=== PATIENT | male | born 1945 | race Caucasian/White ===

== ENCOUNTER 2017-12-11 01:52 | Observation (INO) | payer MEDICARE, OTHER ==
[2017-12-11 02:25] LABS: CHLORIDE,CL 102 mEq/L (98-106); SODIUM,NA 138 mEq/L (136-145)
[2017-12-11] MEDS ORDERED: Sodium Chloride 0.9% 1,000 ML ONE (02:32)
--- NOTE | 2017-12-11 02:35 | EDM.PDOC ---
ED HPI GENERAL MEDICAL PROBLEM - General Chief Complaint: Head Injury Stated Complaint: Fell out side Time Seen by Provider: 12/11/17 02:00 Source of Information: Reports: Patient, EMS, Family History Limitations: Reports: Intoxication - History of Present Illness INITIAL COMMENTS - FREE TEXT/NARRATIVE: BIBA s/p fall with +LOC and hematoma to head which occurred immediately [facility]. EMS reports they arrived to find the patient sitting outside of a bar holding his head. The barrel leveler reports that the patient fell, struck his head, and was unconscious for approximately 15 minutes. He was incontinent of bowel and bladder during this period. The barrel leveler also reports that prior to the fall the patient had 6 alcoholic drinks. The patient is unable to recall the events prior, during, and after the fall. He is anticoagulated d/t hx of atrial fibrillation. He denies any complaints. Onset: Today, Sudden Location: Reports: Head, Upper Extremity, Right Quality: Reports: Other (patient unable to articulate quality of pain) Worsens with: Reports: Movement Context: Reports: Trauma - Related Data Allergies Allergy/AdvReac Type Severity Reaction Status Date / Time sulfamethoxazole Allergy Rash Verified 10/02/14 07:57 [From Bactrim] trimethoprim [From Bactrim] Allergy Rash Verified 10/02/14 07:57 Home Meds: Home Meds Aspirin [Halfprin] 81 mg PO DAILY 12/27/13 [History] Carvedilol 25 mg PO BID 12/27/13 [History] Cholecalciferol (Vitamin D3) [Vitamin D3] 2,000 unit PO DAILY 12/27/13 [History] Digoxin 250 mcg PO DAILY 12/27/13 [History] Lisinopril 20 mg PO DAILY 12/27/13 [History] Silver Sulfadiazine [Silvadene 1% Cream 20 GM] 1 applic TOP BID PRN 12/27/13 [ History] Ubidecarenone [Co Q-10] 30 mg PO DAILY 12/27/13 [History] Warfarin Sodium [Coumadin] 6 mg PO DAILY 12/27/13 [History] Clindamycin HCl [Cleocin] 150 mg PO Q8H #21 cap 01/04/14 [Rx] ED ROS GENERAL - Review of Systems Review Of Systems: See Below Constitutional: Denies: Fever, Chills HEENT: Denies: Dental Pain, Nosebleed, Nose Pain Respiratory: Denies: Shortness of Breath, Wheezing, Cough Cardiovascular: Reports: Other (unable to recall if fall was syncopal in nature) . Denies: Chest Pain GI/Abdominal: Denies: Abdominal Pain, Bloody Stool, Diarrhea, Nausea, Vomiting : Denies: Dysuria, Flank Pain, Frequency, Pain Musculoskeletal: Reports: Shoulder Pain, Arm Pain, Joint Pain. Denies: Neck Pain, Back Pain, Hand Pain, Leg Pain, Foot Pain, Muscle Stiffness Skin: Reports: Bruising Neurological: Denies: Dizziness, Headache, Numbness, Paresthesia, Tingling, Tremors, Weakness ED EXAM, HEAD INJURY - Physical Exam Exam: See Below Exam Limited By: Intoxication General Appearance: Alert, WD/WN, Mild Distress Head: Scalp Swelling, Scalp Hematoma. No: Oconnell's Sign, Raccoon Eyes Nexus Criteria: Evidence of Intoxication, Altered Level of Consciousness. No: Posterior, Midline Cervical Tenderness, Focal Neurological Deficit, Painful Distraction Injuries Eyes: Bilateral Eye: Nystagmus, PERRL (sluggish bilat) Ears: Normal External Exam, Hearing Grossly Normal Nose: Normal Inspection Throat/Mouth: Normal Inspection, Normal Lips, Normal Teeth, Normal Oropharynx, Normal Voice, No Airway Compromise Neck: Non-Tender, Full Range of Motion, Normal Alignment, Normal Inspection Respiratory: No Respiratory Distress, Lungs Clear, Normal Breath Sounds, No Accessory Muscle Use, Chest Non-Tender Cardiovascular: Normal Peripheral Pulses, Regular Rate, Rhythm GI/Abdominal Exam: Normal Bowel Sounds, Soft, Non-Tender, Pelvis Stable (Male) Exam: Normal Inspection Back Exam: Normal Inspection, Full Range of Motion. No: CVA Tenderness (L), CVA Tenderness (R), Paraspinal Tenderness, Vertebral Tenderness Extremities: Normal Capillary Refill, Other (swelling about the RIGHT elbow and RIGHT shoulder. no other acute MSK findings.) Neurologic: Other (unable to recall the day, date, month, year. able to state full name, location. unable to recall events leading to, during, after fall. repeatedly asks why he is here.) Skin: Normal Color, Other (hematoma with abrasion to RIGHT scalp.) - [place] Coma Score Best Eye Response ([place]): (4) Open Spontaneously Best Verbal Response ([place]): (4) Confused Conversation Best Motor Response ([place]): (6) Obeys Commands Ella Total: 14 ED LACERATION/WOUND & XENIA PROC - Splinting Right Upper Extremity Pre-procedure NV status: Normal Post-procedure NV status: Normal Splint Material: Fiberglass Splint Design: Posterior, Sling Applied & Form Fitted By: Provider Provider Post-Splint Application NV Check: NV Status Normal Complications: No EKG INTERPRETATION EKG Date: 12/11/17 Time: 02:12 Rhythm: A-Fib Rate (Beats/Min): 62 QRS: Wide Course - Vital Signs Last Recorded V/S: Last Vital Signs Temp 34.8 C L 12/11/17 02:00 Pulse 76 12/11/17 02:00 Resp 20 12/11/17 02:00 BP 138/97 H 12/11/17 02:00 Pulse Ox 98 12/11/17 02:00 - Orders/Labs/Meds Orders: Active Orders 24 hr Category Date Time Status Cervical Spine wo Cont [CT] Stat Exams 12/11/17 02:23 Taken Chest 2V [CR] Stat Exams 12/11/17 02:23 Taken Elbow Min 3V Rt [CR] Stat Exams 12/11/17 02:23 Taken Head wo Cont [CT] Stat Exams 12/11/17 02:23 Taken Shoulder Comp Rt [CR] Stat Exams 12/11/17 02:23 Taken Labs: Laboratory Tests 12/11/17 12/11/17 12/11/17 Range/Units 02:07 02:07 02:07 WBC 7.2 (5.0-10.0) 10^3/uL RBC 4.22 L (4.50-6.00) 10^6/uL Hgb 13.2 L (14.0-18.0) g/dL Hct 40.2 (40.0-54.0) % MCV 95.3 H (82.0-94.0) fL MCH 31.3 (27.0-32.0) pg MCHC 32.8 L (33.0-38.0) g/dL RDW Coeff of Guerline 12.8 (11.0-15.0) % Plt Count 157 (150-400) 10^3/uL Neut % (Auto) 64.1 (35-85) % Lymph % (Auto) 25.8 (10-55) % Stokes % (Auto) 7.7 (0-16) % Eos % (Auto) 2.1 (0-5) % Baso % (Auto) 0.3 (0-3) % Neut # (Auto) 4.61 (1.80-7.00) 10^3/uL Lymph # (Auto) 1.85 (1.00-4.80) 10^3/uL Stokes # (Auto) 0.55 (0.00-0.80) 10^3/uL Eos # (Auto) 0.15 (0.00-0.45) 10^3/uL Baso # (Auto) 0.02 10^3/uL PT 11.5 (9.7-12.3) SEC INR 1.11 (0.92-1.18) Sodium 138 (136-145) mEq/L Potassium 3.7 (3.5-5.0) mEq/L Chloride 102 (98-106) mEq/L Carbon Dioxide 28 (21-32) mmol/L BUN 17 (7-18) mg/dL Creatinine 0.9 (0.7-1.3) mg/dL Est Cr Clr Drug Dosing TNP Estimated GFR (MDRD) > 60 (>=60) mL/min Glucose 151 H D (75-99) mg/dL Calcium 8.3 L (8.4-10.1) mg/dL Total Bilirubin 1.1 H (0.0-1.0) mg/dL AST 29 (15-37) U/L ALT 32 (12-78) U/L Alkaline Phosphatase 93 (46-116) U/L Troponin I < 0.017 (0.00-0.06) ng/mL Total Protein 7.4 (6.4-8.2) g/dL Albumin 3.7 (3.4-5.0) g/dL Meds: Medications Discontinued Medications Generic Name Dose Route Start Last Admin Trade Name Freq PRN Reason Stop Dose Admin Sodium Chloride 1,000 mls @ 1,000 mls/hr 12/11/17 02:40 12/11/17 03:00 Normal Saline IV 12/11/17 03:39 1,000 mls/hr .BOLUS ONE Administration Sodium Chloride Confirm 12/11/17 02:32 12/11/17 03:53 Normal Saline Administered 12/11/17 02:33 Not Given Dose 1,000 mls @ as directed .ROUTE .STK-MED ONE Departure - Departure Time of Disposition: 05:02 Disposition: DC/Tfer to Medicaid [facility] Condition: Good, Fair Clinical Impression: Fall, Head injury, Hematoma, Closed fracture of distal clavicle, Ulnar fracture , Intoxication - Discharge Information *PRESCRIPTION DRUG MONITORING PROGRAM REVIEWED*: Not Applicable *COPY OF PRESCRIPTION DRUG MONITORING REPORT IN PATIENT BLAYNE: Not Applicable Forms: ED Department Discharge - Problem List Review Problem List Initiated/Reviewed/Updated: Yes - My Orders Last 24 Hours: My Active Orders 12/11/17 02:23 Cervical Spine wo Cont [CT] Stat Chest 2V [CR] Stat Elbow Min 3V Rt [CR] Stat Head wo Cont [CT] Stat Shoulder Comp Rt [CR] Stat - Assessment/Plan Admission H&P: Please use this note as an admission H&P Last 24 Hours: My Active Orders 12/11/17 02:23 Cervical Spine wo Cont [CT] Stat Chest 2V [CR] Stat Elbow Min 3V Rt [CR] Stat Head wo Cont [CT] Stat Shoulder Comp Rt [CR] Stat Assessment:: Fall Head injury Hematoma Ulna fracture Clavicle fracture CT of head and neck negative for acute pathology. Ulna fracture splinted using posterior long arm orthoglass and placed in sling. CMS intact pre and post procedure. Labs grossly WNL. EKG shows Afib without ST-T changes. Admit for observation, neuro checks, pain control.
[2017-12-11] MEDS ORDERED: Sodium Chloride 0.9% 1,000 ML IV ONE (02:40)
[2017-12-11] MEDS ORDERED: Sodium Chloride 0.9% 10 ML Syringe FLUSH PRN (06:10)
[2017-12-11] MEDS ORDERED: Ondansetron 4 MG Tab.DIS PO PRN (06:10)
[2017-12-11] MEDS ORDERED: Ondansetron 4 MG/2 ML SDV IV PRN (06:10)
[2017-12-11] MEDS ORDERED: HYDROmorphone 1 MG/ML Syringe IVPUSH PRN (06:10)
[2017-12-11 11:46] LABS: CHLORIDE,CL 101 mEq/L (98-106); SODIUM,NA 136 mEq/L (136-145)
--- NOTE | 2017-12-11 13:44 | PCM.PN ---
- General Info Date of Service: 12/11/17 Admission Dx/Problem (Free Text): head injury Functional Status: Reports: Pain Controlled, Tolerating Diet, Ambulating - Review of Systems General: Reports: Weakness, Fatigue. Denies: Fever HEENT: Reports: Other (RIGHT head pain d/t hematoma) Pulmonary: Denies: Shortness of Breath, Cough Cardiovascular: Denies: Chest Pain Gastrointestinal: Reports: Nausea, Vomiting, Other (reports emesis x1 after breakfast, reports symptoms have resolved). Denies: Abdominal Pain Genitourinary: Denies: Dysuria, Flank Pain Musculoskeletal: Reports: Shoulder Pain, Arm Pain. Denies: Neck Pain, Back Pain , Leg Pain Skin: Reports: Bruising Neurological: Reports: No Symptoms Psychiatric: Reports: No Symptoms - Patient Data Vitals - Most Recent: Last Vital Signs Temp 36.8 C 12/11/17 08:00 Pulse 88 12/11/17 08:00 Resp 18 12/11/17 08:00 BP 148/70 H 12/11/17 08:00 Pulse Ox 96 12/11/17 08:00 Weight - Most Recent: 90.718 kg Lab Results Last 24 Hours: Laboratory Results - last 24 hr 12/11/17 12/11/17 12/11/17 Range/Units 02:07 02:07 02:07 WBC 7.2 (5.0-10.0) 10^3/uL RBC 4.22 L (4.50-6.00) 10^6/uL Hgb 13.2 L (14.0-18.0) g/dL Hct 40.2 (40.0-54.0) % MCV 95.3 H (82.0-94.0) fL MCH 31.3 (27.0-32.0) pg MCHC 32.8 L (33.0-38.0) g/dL RDW Coeff of Guerline 12.8 (11.0-15.0) % Plt Count 157 (150-400) 10^3/uL Neut % (Auto) 64.1 (35-85) % Lymph % (Auto) 25.8 (10-55) % [place] % (Auto) 7.7 (0-16) % Eos % (Auto) 2.1 (0-5) % Baso % (Auto) 0.3 (0-3) % Neut # (Auto) 4.61 (1.80-7.00) 10^3/uL Lymph # (Auto) 1.85 (1.00-4.80) 10^3/uL [place] # (Auto) 0.55 (0.00-0.80) 10^3/uL Eos # (Auto) 0.15 (0.00-0.45) 10^3/uL Baso # (Auto) 0.02 10^3/uL PT 11.5 (9.7-12.3) SEC INR 1.11 (0.92-1.18) Sodium 138 (136-145) mEq/L Potassium 3.7 (3.5-5.0) mEq/L Chloride 102 (98-106) mEq/L Carbon Dioxide 28 (21-32) mmol/L BUN 17 (7-18) mg/dL Creatinine 0.9 (0.7-1.3) mg/dL Est Cr Clr Drug Dosing TNP Estimated GFR (MDRD) > 60 (>=60) mL/min Glucose 151 H D (75-99) mg/dL Calcium 8.3 L (8.4-10.1) mg/dL Total Bilirubin 1.1 H (0.0-1.0) mg/dL AST 29 (15-37) U/L ALT 32 (12-78) U/L Alkaline Phosphatase 93 (46-116) U/L Troponin I < 0.017 (0.00-0.06) ng/mL Total Protein 7.4 (6.4-8.2) g/dL Albumin 3.7 (3.4-5.0) g/dL 12/11/17 12/11/17 Range/Units 11:27 11:28 WBC 9.8 (5.0-10.0) 10^3/uL RBC 3.72 L (4.50-6.00) 10^6/uL Hgb 11.7 L (14.0-18.0) g/dL Hct 34.9 L (40.0-54.0) % MCV 93.8 (82.0-94.0) fL MCH 31.5 (27.0-32.0) pg MCHC 33.5 (33.0-38.0) g/dL RDW Coeff of Guerline 12.7 (11.0-15.0) % Plt Count 141 L (150-400) 10^3/uL Neut % (Auto) 79.9 (35-85) % Lymph % (Auto) 11.8 (10-55) % [place] % (Auto) 8.1 (0-16) % Eos % (Auto) 0.1 (0-5) % Baso % (Auto) 0.1 (0-3) % Neut # (Auto) 7.79 H (1.80-7.00) 10^3/uL Lymph # (Auto) 1.15 (1.00-4.80) 10^3/uL [place] # (Auto) 0.79 (0.00-0.80) 10^3/uL Eos # (Auto) 0.01 (0.00-0.45) 10^3/uL Baso # (Auto) 0.01 10^3/uL PT (9.7-12.3) SEC INR (0.92-1.18) Sodium 136 (136-145) mEq/L Potassium 3.8 (3.5-5.0) mEq/L Chloride 101 (98-106) mEq/L Carbon Dioxide 25 (21-32) mmol/L BUN 13 (7-18) mg/dL Creatinine 0.7 (0.7-1.3) mg/dL Est Cr Clr Drug Dosing 98.61 Estimated GFR (MDRD) > 60 (>=60) mL/min Glucose 119 H (75-99) mg/dL Calcium 8.3 L (8.4-10.1) mg/dL Total Bilirubin (0.0-1.0) mg/dL AST (15-37) U/L ALT (12-78) U/L Alkaline Phosphatase (46-116) U/L Troponin I (0.00-0.06) ng/mL Total Protein (6.4-8.2) g/dL Albumin (3.4-5.0) g/dL Med Orders - Current: Current Medications Acetaminophen (Tylenol) 650 mg PO Q4H PRN PRN Reason: Pain (Mild 1-3)/fever Hydromorphone HCl (Dilaudid) 0.5 mg IVPUSH Q2H PRN PRN Reason: Pain (severe 7-10) Ondansetron HCl (Zofran Odt) 4 mg PO Q4H PRN PRN Reason: nausea, able to take PO Ondansetron HCl (Zofran) 4 mg IV Q4H PRN PRN Reason: Nausea/Vomiting Sodium Chloride (Saline Flush) 10 ml FLUSH ASDIRECTED PRN PRN Reason: Keep Vein Open Discontinued Medications Sodium Chloride (Normal Saline) 1,000 mls @ 1,000 mls/hr IV .BOLUS ONE Stop: 12/11/17 03:39 Last Admin: 12/11/17 03:00 Dose: 1,000 mls/hr Sodium Chloride (Normal Saline) Confirm Administered Dose 1,000 mls @ as directed .ROUTE .STK-MED ONE Stop: 12/11/17 02:33 Last Admin: 12/11/17 03:53 Dose: Not Given - Exam Quality Assessment: No: Supplemental Oxygen General: Alert, Oriented, Cooperative, No Acute Distress HEENT: Pupils Equal, Pupils Reactive, EOMI Neck: Supple Lungs: Normal Respiratory Effort Cardiovascular: Regular Rate, Regular Rhythm GI/Abdominal Exam: Soft, Non-Tender Back Exam: Normal Inspection, Full Range of Motion Extremities: Other (right arm splinted and in sling. CMS intact) Peripheral Pulses: 2+: Radial (L), Radial (R) Skin: Warm, Dry, Intact, Other (hematoma with abrasion to RIGHT side of head) Neurological: No New Focal Deficit, Other (gait is unsteady) Psy/Mental Status: Alert, Normal Affect, Normal Mood - Problem List Review Problem List Initiated/Reviewed/Updated: Yes - My Orders Last 24 Hours: My Active Orders 12/11/17 02:23 Cervical Spine wo Cont [CT] Stat Chest 2V [CR] Stat Elbow Min 3V Rt [CR] Stat Head wo Cont [CT] Stat Shoulder Comp Rt [CR] Stat 12/11/17 05:34 Resuscitation Status Routine 12/11/17 06:10 Neuro Check [RC] Q4H Oxygen Therapy [RC] .PRN Peripheral IV Care [RC] 0800,2000 Up With Assistance [RC] ASDIRECTED Vital Signs [RC] 0800,1200,1600,2000,0000,0400 Acetaminophen [Tylenol] 650 mg PO Q4H PRN HYDROmorphone [Dilaudid] 0.5 mg IVPUSH Q2H PRN Ondansetron [Zofran ODT] 4 mg PO Q4H PRN Ondansetron [Zofran] 4 mg IV Q4H PRN Sodium Chloride 0.9% [Saline Flush] 10 ml FLUSH ASDIRECTED PRN Peripheral IV Insertion Adult [OM.PC] Routine 12/11/17 Breakfast Regular Diet [DIET] 12/12/17 05:11 BASIC METABOLIC PANEL,BMP [CHEM] AM CBC W/O DIFF,HEMOGRAM [HEME] AM - Assessment Assessment:: head injury hematoma arm pain ulna fracture clavicle fracture anemia Labs returned showing decrease in H&H from 13.2 & 40.2 to 11.7 & 34.9. No hematemesis, melena, jas bleeding or other obvious etiology. Patient is unsteady when walking and requires assistance. Discussed staying until tomorrow am for monitoring and assistance with ambulation, repeat labs in AM. Patient and family at bedside agree to plan. Continue to monitor, repeat labs in AM.
[2017-12-11] MEDS ORDERED: Pneumococcal Polyvalent-23 Vaccine 0.5 ML SDV IM ONE (15:18)
[2017-12-11] MEDS: Carvedilol 12.5 MG Tab PO SCH (20:06)
[2017-12-11] MEDS: Acetaminophen 325 MG Tab PO PRN (20:10)
[2017-12-12] MEDS: Carvedilol 12.5 MG Tab PO SCH (07:51)
[2017-12-12] MEDS: Acetaminophen 325 MG Tab PO PRN (07:51)
[2017-12-12 07:54] VITALS: BP 144/88
[2017-12-12] MEDS ORDERED: FUROSEMIDE 80 MG PO SCH (08:00)
[2017-12-12] MEDS ORDERED: UBIDECARENONE 100 MG PO SCH (08:00)
[2017-12-12] MEDS ORDERED: Pantoprazole 40 MG Tab.CR**OWN MED PO SCH (08:00)
[2017-12-12] MEDS ORDERED: Cholecalciferol (Vitamin D3) 1,000 Unit Tab**OWN MED PO SCH (08:00)
[2017-12-12] MEDS ORDERED: RIVAROXABAN 20 MG PO SCH (08:00)
[2017-12-12 08:53] LABS: CHLORIDE,CL 103 mEq/L (98-106)
[2017-12-12 10:09] LABS: SODIUM,NA 135 mEq/L (136-145)
--- NOTE | 2017-12-12 20:48 | PCM.DCSUM1 ---
Discharge Summary - Hospital Course Free Text/Narrative:: Patient admitted from ER after falling at the local bar in [place] and hitting his head. He states he must have fell down the 3 stairs when leaving. Did have reported LOC for about 15 minutes. Seemed confused at the scene. EMS reported he had 6 mixed drinks while there. Did have a CT scan of his head, does take Xarelto. CT scan negative for acute changes. Did note fracture of his clavicle and ulna. Placed in a fiberglass splint and sling. Admitted for pain control and neuro checks. Diagnosis: Stroke: No Modified Viki Scale: No Symptoms at All Modified Larue Scale Score: 0 - Discharge Data Discharge Date: 12/12/17 Discharge Disposition: Home, Self-Care 01 Condition: Good - Patient Summary/Data Complications: none Hospital Course: Patient doing well. Tolerating pain well with only use of Tylenol. Splint intact to right arm, sling intact for clavicle. Is ambulating in room, hallway. Neuro checks have been normal. Did develop bruise to right hip but has good range of motion, able to bear full weight on his leg. Vital signs stable. - Patient Instructions Diet: Usual Diet as Tolerated Activity: As Tolerated - Discharge Plan *PRESCRIPTION DRUG MONITORING PROGRAM REVIEWED*: Not Applicable *COPY OF PRESCRIPTION DRUG MONITORING REPORT IN PATIENT BLAYNE: Not Applicable Prescriptions/Med Rec: Acetaminophen [Tylenol] 650 mg PO Q4H PRN #60 tablet PRN Reason: Pain (Mild 1-3)/fever Home Medications: Home Meds Aspirin [Halfprin] 81 mg PO DAILY 12/27/13 [History] Carvedilol 25 mg PO BID 12/27/13 [History] Cholecalciferol (Vitamin D3) [Vitamin D3] 2,000 unit PO DAILY 12/27/13 [History] Furosemide 40 mg PO DAILY 12/11/17 [History] Pantoprazole [ProTONIX] 40 mg PO DAILY 12/11/17 [History] Rivaroxaban [Xarelto] 20 mg PO DAILY 12/11/17 [History] Ubidecarenone [Co Q-10] 100 mg PO DAILY 12/11/17 [History] Acetaminophen [Tylenol] 650 mg PO Q4H PRN #60 tablet 12/12/17 [Rx] Forms: ED Department Discharge Referrals: Demond Moody MD [Primary Care Provider] - (Follow up with Dr. Moody for hospital follow up in one week) - Discharge Summary/Plan Comment DC Time >30 min.: No Discharge Summary/Plan Comment: Discharge home Tylenol for discomfort. Follow up with Dr. Moody in one week. Will obtain repeat xrays at that time and determine if needs any further ortho follow up. - General Info Date of Service: 12/12/17 Admission Dx/Problem (Free Text: head injury clavicle fracture ulna fracture Functional Status: Reports: Pain Controlled, Tolerating Diet, Ambulating - Review of Systems General: Denies: Fever, Weakness HEENT: Reports: No Symptoms Pulmonary: Denies: Shortness of Breath, Cough Cardiovascular: Denies: Chest Pain, Lightheadedness Gastrointestinal: Denies: Abdominal Pain, Nausea, Vomiting Musculoskeletal: Reports: Arm Pain, Joint Pain Skin: Reports: Bruising Neurological: Reports: No Symptoms - Patient Data Vitals - Most Recent: Last Vital Signs Temp 97.8 F 12/12/17 07:56 Pulse 86 12/12/17 07:56 Resp 18 12/12/17 07:56 BP 144/88 H 12/12/17 07:56 Pulse Ox 100 12/12/17 07:56 Weight - Most Recent: 200 lb Lab Results - Last 24 hrs: Laboratory Results - last 24 hr 12/12/17 12/12/17 Range/Units 07:30 07:30 WBC 6.6 (5.0-10.0) 10^3/uL RBC 3.91 L (4.50-6.00) 10^6/uL Hgb 12.3 L (14.0-18.0) g/dL Hct 37.3 L (40.0-54.0) % MCV 95.4 H (82.0-94.0) fL MCH 31.5 (27.0-32.0) pg MCHC 33.0 (33.0-38.0) g/dL RDW Coeff of Guerline 12.9 (11.0-15.0) % Plt Count 133 L (150-400) 10^3/uL MPV 10.8 fL Sodium 135 L (136-145) mEq/L Potassium 4.2 (3.5-5.0) mEq/L Chloride 103 (98-106) mEq/L Carbon Dioxide 31 (21-32) mmol/L BUN 15 (7-18) mg/dL Creatinine 1.0 (0.7-1.3) mg/dL Est Cr Clr Drug Dosing 69.03 mL/min Estimated GFR (MDRD) > 60 (>=60) mL/min Glucose 107 H (75-99) mg/dL Calcium 8.3 L (8.4-10.1) mg/dL Med Orders - Current: Current Medications Discontinued Medications Acetaminophen (Tylenol) 650 mg PO Q4H PRN PRN Reason: Pain (Mild 1-3)/fever Last Admin: 12/12/17 07:51 Dose: 650 mg Carvedilol (Coreg) 25 mg PO BID [facility] Last Admin: 12/12/17 07:51 Dose: 25 mg Cholecalciferol (Vitamin D3) 2,000 units PO DAILY [facility] Last Admin: 12/12/17 07:53 Dose: 2,000 units Furosemide (Lasix) 40 mg PO DAILY [facility] Last Admin: 12/12/17 07:52 Dose: 40 mg Hydromorphone HCl (Dilaudid) 0.5 mg IVPUSH Q2H PRN PRN Reason: Pain (severe 7-10) Sodium Chloride (Normal Saline) 1,000 mls @ 1,000 mls/hr IV .BOLUS ONE Stop: 12/11/17 03:39 Last Admin: 12/11/17 03:00 Dose: 1,000 mls/hr Sodium Chloride (Normal Saline) Confirm Administered Dose 1,000 mls @ as directed .ROUTE .STK-MED ONE Stop: 12/11/17 02:33 Last Admin: 12/11/17 03:53 Dose: Not Given Rivaroxaban [Xarelto (] 20 MgOwn Med) 20 mg PO DAILY [facility] Last Admin: 12/12/17 07:54 Dose: 20 mg Ubidecarenone [Co Q- 10] 100 MgOwn Med* * 100 mg PO DAILY [facility] Last Admin: 12/12/17 07:53 Dose: 100 mg Ondansetron HCl (Zofran Odt) 4 mg PO Q4H PRN PRN Reason: nausea, able to take PO Ondansetron HCl (Zofran) 4 mg IV Q4H PRN PRN Reason: Nausea/Vomiting Pantoprazole Sodium (Protonix) 40 mg PO DAILY [facility] Last Admin: 11/05/18 07:53 Dose: 40 mg Pneumococcal Polyvalent Vaccine (Pneumovax 23) 0.5 ml IM .ONCE ONE Stop: 12/11/17 15:19 Last Admin: 12/11/17 16:29 Dose: 0.5 ml Sodium Chloride (Saline Flush) 10 ml FLUSH ASDIRECTED PRN PRN Reason: Keep Vein Open - Exam General: Reports: Alert, Oriented HEENT: Reports: Mucous Membr. Moist/Schriever Neck: Reports: Supple Lungs: Reports: Clear to Auscultation, Normal Respiratory Effort Cardiovascular: Reports: Irregular Rhythm GI/Abdominal Exam: Normal Bowel Sounds, Soft, Non-Tender Skin: Reports: Warm, Dry, Ecchymosis (right hip) Neurological: Reports: No New Focal Deficit
== END 2017-12-12 13:20 | disposition home or self-care (01) ==
LOC: CC.ED 01:52 → CC.MS 05:40 → INTOOBSV 05:40 → OBSVTOIN 05:40
PROVIDERS: ADMIT Nurse Practitioner Family; ATTEND Family Medicine
DX: S06.9X1A Unspecified intracranial injury with loss of consciousness of 30 minutes or less, initial encounter (principal); S00.03XA Contusion of scalp, initial encounter; S42.031A Displaced fracture of lateral end of right clavicle, initial encounter for closed fracture; S52.021A Displaced fracture of olecranon process without intraarticular extension of right ulna, initial encounter for closed fracture; D64.9 Anemia, unspecified; Z79.82 Long term (current) use of aspirin; Z79.899 Other long term (current) drug therapy; W10.9XXA Fall (on) (from) unspecified stairs and steps, initial encounter; Y93.9 Activity, unspecified; Z23 Encounter for immunization
CPT/HCPCS: 29105; 36415; 70450; 71046; 72125; 73030; 73080; 80048; 80053; 84484; 85025; 85027; 85610; 90686; 90732; 93005; 93010; 96360; 96361; 97535; 99217; 99220; 99285; A9270; G0008; G0009; G0378; J7030

== ENCOUNTER 2020-09-01 10:15 | Inpatient (IN) | payer MEDICARE, OTHER ==
[2020-09-01] MEDS ORDERED: Sodium Chloride 0.9% 10 ML Syringe FLUSH PRN (10:34)
[2020-09-01] MEDS ORDERED: Furosemide 40 MG/4 ML VIAL IV ONE (10:34)
[2020-09-01] MEDS ORDERED: Sodium Chloride 0.9% 250 ML IV SCH (12:00)
[2020-09-01] MEDS ORDERED: Acetaminophen 325 MG Tab PO PRN (13:57)
--- NOTE | 2020-09-01 14:01 | EDM.PDOC ---
ED HPI GENERAL MEDICAL PROBLEM - General Chief Complaint: General Stated Complaint: LOW HEMOGLOBIN FROM [facility] Time Seen by Provider: 09/01/20 10:45 Source of Information: Reports: Patient, Long Term Records History Limitations: Reports: No Limitations - History of Present Illness INITIAL COMMENTS - FREE TEXT/NARRATIVE: Jonathan is a 74 yo male who presents to the ED with c/o low hemoglobin. Had lab work completed at [facility] this morning. Had 3 positive fecal occults. Did receive 2 units PRBCs over the weekend. Repeat Hgb today down to 5.3. Is on Xarelto and aspirin. Patient reports he has no complaints upon ED presentation. He does have dementia. Does not feel he has been more weak/confused. assisted staff report he has been more weak and confused. Patient is poor historian so ROS difficult to obtain. Associated Symptoms: Reports: Confusion, Other (melena). Denies: Chest Pain, Cough, cough w sputum, Diaphoresis, Fever/Chills, Headaches, Loss of Appetite, Malaise, Nausea/Vomiting, Rash, Seizure, Shortness of Breath, Syncope, Weakness - Related Data Allergies Allergy/AdvReac Type Severity Reaction Status Date / Time sulfamethoxazole Allergy Rash Verified 09/01/20 10:18 [From Bactrim] trimethoprim [From Bactrim] Allergy Rash Verified 09/01/20 10:18 Home Meds: Home Meds Cholecalciferol (Vitamin D3) [Vitamin D3] 2,000 unit PO DAILY 12/27/13 [History] carvediloL [Carvedilol] 25 mg PO BID 12/27/13 [History] Furosemide 40 mg PO BID 12/11/17 [History] Rivaroxaban [Xarelto] 20 mg PO DAILY 12/11/17 [History] Aspirin [Aspirin EC] 81 mg PO DAILY 08/28/20 [History] Digoxin 250 mcg PO DAILY 08/28/20 [History] Donepezil [Aricept] 10 mg PO BEDTIME 08/28/20 [History] Ferrous Sulfate 325 mg PO DAILY 08/28/20 [History] Magnesium 250 mg PO DAILY 08/28/20 [History] Melatonin 5 mg PO BEDTIME 08/28/20 [History] lisinopriL [Lisinopril] 10 mg PO DAILY 08/28/20 [History] Cyanocobalamin (Vitamin B-12) [Vitamin B-12] 500 mcg PO DAILY 09/01/20 [History] Pantoprazole Sodium [Protonix] 40 mg PO DAILY 09/01/20 [History] Past Medical History Cardiovascular History: Reports: Afib, Heart Failure, High Cholesterol, Hypertension, PVD Psychiatric History: Reports: Dementia Social & Family History - Family History Family Medical History: No Pertinent Family History - Tobacco Use Tobacco Use Status *Q: Never Tobacco User Second Hand Smoke Exposure: No ED ROS GENERAL - Review of Systems Review Of Systems: Comprehensive ROS is negative, except as noted in HPI. ED EXAM, GENERAL - Physical Exam Exam: See Below Exam Limited By: No Limitations General Appearance: Alert, WD/WN, No Apparent Distress Head: Atraumatic, Normocephalic Neck: Normal Inspection, Supple, Non-Tender, Full Range of Motion Respiratory/Chest: No Respiratory Distress, Lungs Clear, Normal Breath Sounds, No Accessory Muscle Use, Chest Non-Tender Cardiovascular: Normal Peripheral Pulses, Regular Rate, Rhythm GI/Abdominal: Normal Bowel Sounds, Soft, Non-Tender, No Organomegaly, No D istention, No Abnormal Bruit, No Mass Back Exam: Normal Inspection, Full Range of Motion, NT Extremities: Normal Inspection, Normal Range of Motion, Normal Capillary Refill, Pedal Edema (1+) Neurological: Alert, No Motor/Sensory Deficits Psychiatric: Normal Affect, Normal Mood Skin Exam: Warm, Dry, Intact, No Rash, Pallor Lymphatic: No Adenopathy Course - Vital Signs Last Recorded V/S: Last Vital Signs Temp 97.7 F 09/01/20 20:00 Pulse 58 L 09/01/20 20:00 Resp 18 09/01/20 20:00 BP 109/48 L 09/01/20 20:00 Pulse Ox 99 09/01/20 20:00 - Orders/Labs/Meds Orders: Active Orders 24 hr Category Date Time Status Sodium Chloride 0.9% [Saline Flush] Med 09/01/20 10:34 Active 10 ml FLUSH Q1H PRN Blood Transfusion Reflex Orders [OM.PC] Routine Oth 09/01/20 10:34 Ordered Transfuse Red Blood Cells [COMM] Stat Oth 09/01/20 10:34 Ordered Medication Orders Acetaminophen (Acetaminophen 325 Mg Tab) 650 mg PO Q4H PRN PRN Reason: Pain (Mild 1-3)/fever Carvedilol (Carvedilol 12.5 Mg Tab) 25 mg PO BIDMEALS [facility] Last Admin: 09/01/20 18:34 Dose: Not Given Documented by: SALAS Cholecalciferol (Cholecalciferol (Vitamin D3) 25 Mcg Tab) 50 mcg PO DAILY [facility] Cyanocobalamin (Cyanocobalamin (Vitamin B12) 1,000 Mcg Tab) 500 mcg PO DAILY [facility] Digoxin (Digoxin 125 Mcg Tab) 125 mcg PO DAILY [facility] Donepezil HCl (Donepezil 5 Mg Tab) 10 mg PO BEDTIME [facility] Last Admin: 09/01/20 20:25 Dose: 10 mg Documented by: ELEN Ferrous Sulfate (Ferrous Sulfate 324 Mg Tab.Ec) 324 mg PO DAILY [facility] Furosemide (Furosemide 40 Mg Tab) 40 mg PO BID [facility] Last Admin: 09/01/20 19:52 Dose: Not Given Documented by: SALAS Lisinopril (Lisinopril 10 Mg Tab) 10 mg PO DAILY [facility] Magnesium Oxide (Magnesium Oxide 250 Mg Tab) 250 mg PO DAILY [facility] Melatonin (Melatonin 3 Mg Tab) 6 mg PO BEDTIME [facility] Last Admin: 09/01/20 20:25 Dose: 6 mg Documented by: ELEN Pantoprazole Sodium (Pantoprazole 40 Mg Vial) 40 mg IVPUSH Q24H [facility] Sodium Chloride (Sodium Chloride 0.9% 10 Ml Syringe) 10 ml FLUSH Q1H PRN PRN Reason: Keep Vein Open Labs: Laboratory Tests 09/01/20 09/01/20 09/01/20 Range/Units 10:34 10:46 10:46 WBC 3.9 L (4.0-11.0) 10^3/uL RBC 1.57 L (4.50-6.00) x10^6/uL Hgb 5.1 L* (14.0-18.0) g/dL Hct 16.0 L* (42.0-52.0) % MCV 101.9 H (83.0-97.0) fL MCH 32.5 H (27.0-32.0) pg MCHC 31.9 L (32.0-36.0) g/dL RDW Coeff of Guerline 15.8 H (11.0-15.0) % Plt Count 146 L (150-400) 10^3/uL Immature Gran % (Auto) 0.3 (0.0-4.9) % Neut % (Auto) 61.8 (41-71) % Lymph % (Auto) 17.1 L (24-44) % Navarro % (Auto) 14.0 H (0-10) % Eos % (Auto) 5.2 (0-6) % Baso % (Auto) 1.6 H (0-1) % Neut # (Auto) 2.38 (1.80-8.00) x10^3/uL Lymph # (Auto) 0.66 (0.60-5.00) 10^3/uL Navarro # (Auto) 0.54 (0.00-1.50) 10^3/uL Eos # (Auto) 0.20 (0.00-1.50) 10^3/uL Baso # (Auto) 0.06 (0.00-0.50) 10^3/uL Immature Gran # (Auto) 0.01 (0.00-0.49) 10^3/uL Sodium 134 L (136-145) mEq/L Potassium 4.7 (3.5-5.0) mEq/L Chloride 101 (98-106) mEq/L Carbon Dioxide 29 (21-32) mmol/L BUN 43 H (7-18) mg/dL Creatinine 1.2 (0.7-1.3) mg/dL Est Cr Clr Drug Dosing 55.78 mL/min Estimated GFR (MDRD) 59 L (>=60) mL/min Glucose 93 (75-99) mg/dL Calcium 7.6 L (8.4-10.1) mg/dL Total Bilirubin 0.9 (0.0-1.0) mg/dL AST 20 (15-37) U/L ALT 14 (12-78) U/L Alkaline Phosphatase 80 (46-116) U/L Total Protein 5.4 L (6.4-8.2) g/dL Albumin 2.4 L (3.4-5.0) g/dL Blood Type B POSITIVE Gel Antibody Screen Negative Crossmatch See Detail Meds: Medications Generic Name Dose Route Start Last Admin Trade Name Freq PRN Reason Stop Dose Admin Acetaminophen 650 mg 09/01/20 13:57 Acetaminophen 325 Mg Tab PO Q4H PRN Pain (Mild 1-3)/fever Carvedilol 25 mg 09/01/20 17:30 09/01/20 18:34 Carvedilol 12.5 Mg Tab PO Not Given BIDMEALS [facility] Cholecalciferol 50 mcg 09/02/20 08:00 Cholecalciferol (Vitamin D3) 25 Mcg Tab PO DAILY [facility] Cyanocobalamin 500 mcg 09/02/20 08:00 Cyanocobalamin (Vitamin B12) 1,000 Mcg Tab PO DAILY [facility] Digoxin 125 mcg 09/02/20 08:00 Digoxin 125 Mcg Tab PO DAILY [facility] Donepezil HCl 10 mg 09/01/20 20:00 09/01/20 20:25 Donepezil 5 Mg Tab PO 10 mg BEDTIME LOIS Administration Ferrous Sulfate 324 mg 09/02/20 08:00 Ferrous Sulfate 324 Mg Tab.Ec PO DAILY [facility] Furosemide 40 mg 09/01/20 20:00 09/01/20 19:52 Furosemide 40 Mg Tab PO Not Given BID [facility] Lisinopril 10 mg 09/02/20 08:00 Lisinopril 10 Mg Tab PO DAILY [facility] Magnesium Oxide 250 mg 09/02/20 08:00 Magnesium Oxide 250 Mg Tab PO DAILY [facility] Melatonin 6 mg 09/01/20 20:00 09/01/20 20:25 Melatonin 3 Mg Tab PO 6 mg BEDTIME [facility] Administration Pantoprazole Sodium 40 mg 09/02/20 07:00 Pantoprazole 40 Mg Vial IVPUSH Q24H [facility] Sodium Chloride 10 ml 09/01/20 10:34 Sodium Chloride 0.9% 10 Ml Syringe FLUSH Q1H PRN Keep Vein Open Discontinued Medications Generic Name Dose Route Start Last Admin Trade Name Freq PRN Reason Stop Dose Admin Furosemide 40 mg 09/01/20 10:34 09/01/20 14:10 Furosemide 40 Mg/4 Ml Vial IV 09/01/20 10:35 40 mg ONETIME ONE Administration Furosemide Confirm 09/01/20 15:40 09/01/20 15:25 Furosemide 40 Mg/4 Ml Vial Administered 09/01/20 15:41 Not Given Dose 40 mg .ROUTE .STK-MED ONE Sodium Chloride 250 mls @ 50 mls/hr 09/01/20 12:00 09/01/20 11:58 Normal Saline IV 09/01/20 16:59 50 mls/hr ASDIRECTED LOIS Administration Pantoprazole Sodium 80 mg 09/01/20 17:00 Pantoprazole 40 Mg Vial IVPUSH 09/01/20 17:01 ONETIME ONE Pantoprazole Sodium 80 mg 09/01/20 20:00 09/01/20 20:25 Pantoprazole 40 Mg Vial IVPUSH 09/01/20 20:01 80 mg ONETIME ONE Administration Departure - Departure Time of Disposition: 12:15 Disposition: Admitted As Inpatient 64 Condition: Fair Clinical Impression: GI bleed Qualifiers: GI bleed type/associated pathology: unspecified gastrointestinal hemorrhage type Qualified Code(s): K92.2 - Gastrointestinal hemorrhage, unspecified Anemia Qualifiers: Anemia type: unspecified type Qualified Code(s): D64.9 - Anemia, unspecified - Discharge Information *PRESCRIPTION DRUG MONITORING PROGRAM REVIEWED*: Not Applicable *COPY OF PRESCRIPTION DRUG MONITORING REPORT IN PATIENT BLAYNE: Not Applicable Sepsis Event Note (ED) - Evaluation Sepsis Screening Result: No Definite Risk - Focused Exam Vital Signs: Vital Signs Temp Temp Pulse Resp BP Pulse Ox 09/01/20 13:40 96.8 F L 55 L 20 91/36 L 09/01/20 13:10 96.8 F L 57 L 18 91/31 L 09/01/20 12:40 97.7 F 59 L 18 95/29 L 09/01/20 12:25 96.2 F L 50 L 18 93/36 L 09/01/20 12:20 97.9 F 56 L 20 95/44 L 97 09/01/20 12:10 97.9 F 56 L 20 95/44 L - Problem List & Annotations (1) GI bleed SNOMED Code(s): 12018222 Code(s): K92.2 - GASTROINTESTINAL HEMORRHAGE, UNSPECIFIED Status: Acute Current Visit: Yes Qualifiers: GI bleed type/associated pathology: unspecified gastrointestinal hemorrhage type Qualified Code(s): K92.2 - Gastrointestinal hemorrhage, unspecified (2) Anemia SNOMED Code(s): 792754865 Code(s): D64.9 - ANEMIA, UNSPECIFIED Status: Acute Current Visit: Yes Qualifiers: Anemia type: unspecified type Qualified Code(s): D64.9 - Anemia, unspecified - Problem List Review Problem List Initiated/Reviewed/Updated: Yes - My Orders Last 24 Hours: My Active Orders 09/01/20 10:34 Sodium Chloride 0.9% [Saline Flush] 10 ml FLUSH Q1H PRN Blood Transfusion Reflex Orders [OM.PC] Routine Transfuse Red Blood Cells [COMM] Stat - Assessment/Plan Admission H&P: Please use this note as an admission H&P Last 24 Hours: My Active Orders 09/01/20 10:34 Sodium Chloride 0.9% [Saline Flush] 10 ml FLUSH Q1H PRN Blood Transfusion Reflex Orders [OM.PC] Routine Transfuse Red Blood Cells [COMM] Stat Assessment:: GI Bleed Anemia Plan: Admit acute with telemetry Transfuse 2 units PRBCs Stop Xarelto and aspirin Start IV Protonix Plan for EGD in am. Keep NPO after midnight Repeat lab work in am Patient transferred to floor in stable condition.
[2020-09-01] MEDS ORDERED: Furosemide 40 MG/4 ML VIAL ONE (15:40)
[2020-09-01] MEDS ORDERED: Pantoprazole 40 MG Vial IVPUSH ONE ×2 (17:00→20:00)
[2020-09-01] MEDS: Carvedilol 12.5 MG Tab PO SCH (18:34)
[2020-09-01] MEDS: Furosemide 40 MG Tab PO SCH (19:52)
[2020-09-01] MEDS: Melatonin 3 MG Tab PO SCH (20:25)
[2020-09-01] MEDS: Donepezil 5 MG Tab PO SCH (20:25)
[2020-09-02] MEDS ORDERED: Lactated Ringers 1,000 ML IV SCH (04:30)
[2020-09-02] MEDS: Pantoprazole 40 MG Vial IVPUSH SCH (06:36)
[2020-09-02] MEDS ORDERED: Cholecalciferol (Vitamin D3) 25 MCG Tab PO SCH (08:00)
[2020-09-02] MEDS ORDERED: Lisinopril 10 MG Tab PO SCH (08:00)
[2020-09-02] MEDS ORDERED: Ferrous Sulfate 324 MG Tab.EC PO SCH (08:00)
[2020-09-02] MEDS ORDERED: Digoxin 125 MCG Tab PO SCH (08:00)
[2020-09-02] MEDS ORDERED: Cyanocobalamin (Vitamin B12) 1,000 MCG Tab PO SCH (08:00)
[2020-09-02 08:01] LABS: CHLORIDE,CL 102 mEq/L (98-106); SODIUM,NA 137 mEq/L (136-145)
[2020-09-02] MEDS ORDERED: Benzocaine 20% Topical Spray UD MUCMEM ONE (08:35)
[2020-09-02] MEDS ORDERED: Meperidine PF 25 MG/ML SDV IV ONE (08:37)
[2020-09-02] MEDS ORDERED: Midazolam 1 MG/ML 2 ML SDV IV ONE (08:39)
[2020-09-02] MEDS: Furosemide 40 MG Tab PO SCH ×2 (13:39→16:34)
[2020-09-02] MEDS: Carvedilol 12.5 MG Tab PO SCH ×2 (13:40→18:31)
[2020-09-02] MEDS: Lisinopril 10 MG Tab PO SCH (13:50)
[2020-09-02] MEDS: Cholecalciferol (Vitamin D3) 25 MCG Tab PO SCH (13:50)
[2020-09-02] MEDS: Cyanocobalamin (Vitamin B12) 1,000 MCG Tab PO SCH (13:51)
[2020-09-02] MEDS: Digoxin 125 MCG Tab PO SCH (13:51)
[2020-09-02] MEDS: Ferrous Sulfate 324 MG Tab.EC PO SCH (18:32)
[2020-09-02] MEDS: Donepezil 5 MG Tab PO SCH (19:56)
[2020-09-02] MEDS: Melatonin 3 MG Tab PO SCH (19:57)
[2020-09-03] MEDS: Pantoprazole 40 MG Vial IVPUSH SCH (07:01)
[2020-09-03] MEDS: Cyanocobalamin (Vitamin B12) 1,000 MCG Tab PO SCH (07:30)
[2020-09-03] MEDS: Ferrous Sulfate 324 MG Tab.EC PO SCH ×2 (07:31→17:18)
[2020-09-03] MEDS: Digoxin 125 MCG Tab PO SCH (07:31)
[2020-09-03] MEDS: Carvedilol 12.5 MG Tab PO SCH ×2 (07:31→17:18)
[2020-09-03] MEDS: Furosemide 40 MG Tab PO SCH ×2 (07:32→16:42)
[2020-09-03] MEDS: Lisinopril 10 MG Tab PO SCH (07:32)
[2020-09-03] MEDS: Cholecalciferol (Vitamin D3) 25 MCG Tab PO SCH (07:32)
--- NOTE | 2020-09-03 16:13 | PN ---
DATE: 09/02/2020 S: Mr. Corrales was admitted again for anemia and hemoglobin was down to 5. He is up to 7 after being transfused. His Xarelto has been held. He had an EGD this morning which failed to show any signs of the etiology of his blood loss. He is feeling fine. His vitals look good. He has not had any complaints of abdominal pain. O: GENERAL: He is in his usual state. NECK: Supple. Veins are flat. LUNGS: Clear. CARDIAC: Tones are regular. GASTROINTESTINAL: There is no abdominal pain to palpation. EXTREMITIES: Scant peripheral edema with his chronic stasis changes. ASSESSMENT: 1. GASTROINTESTINAL BLEED, QUESTIONABLE ETIOLOGY. 2. CONGESTIVE HEART FAILURE. 3. CHRONIC ANTICOAGULATION FOR ATRIAL FIBRILLATION. 4. DEMENTIA. P: We have held his Xarelto. We will continue with his current cares. I am going to give him another 2 units of blood while he is here as his hemoglobin is still only 7, and we will consider diagnostic colonoscopy in the near future. CAREN/SAE /[id number]
--- NOTE | 2020-09-03 16:13 | OR ---
DATE OF OPERATION: 09/02/2020 PREOPERATIVE DIAGNOSIS: PROFOUND ANEMIA. POSTOPERATIVE DIAGNOSIS: PROFOUND ANEMIA. SURGEON: Demond Moody MD PROCEDURE: DIAGNOSTIC ESOPHAGOGASTRODUODENOSCOPY WITH BIOPSY X1. ANESTHESIA: Conscious sedation with continuous O2 saturation monitoring and nurse assist. COMPLICATIONS: None. SPECIMEN: Antral biopsy x1. FINDINGS: 1. Full-length diagnostic EGD. 2. Minimal antral gastritis. 3. No active signs of bleeding, peptic ulcer disease. RECOMMENDATIONS: We will consider colonoscopy this Tuesday. INDICATIONS: The patient was recently hospitalized for CHF. He has been in the intermediate where he was found to have profound anemia with hemoglobin down to 5. After 2 units of blood, he dropped again. Xarelto has been stopped. He is in the hospital for further blood transfusions and we are monitoring him. DESCRIPTION OF PROCEDURE: The patient was prepped and draped, placed in the left lateral decubitus position with the head of the bed elevated. A lubricated Olympus gastroscope was inserted and easily intubated into the esophagus. The esophageal lining was benign in its entire course. The Z-line was crisp at 40 cm. There was no distal esophagitis, stricturing, ulceration, or Daniels's changes. The scope was advanced into the stomach, through the pylorus and into the second portion of the duodenum. This and the duodenal bulb were completely benign. The scope was brought back into the stomach and retroflexed. The upper fundus and cardia were completely unremarkable as was most of the fundus upon straightening. The distal antrum and the peripyloric area had some very minimal and mild gastritis, but nothing with any signs of clotted blood, prior bleeding, or active bleeding at all. We did do a biopsy of the gastritis. Air was then suctioned, scope removed without complication. CAREN/SAE /[id number]
[2020-09-03] MEDS: Oxyquinoline/Emollient 0.3% Oint 1 OZ Canister TOP PRN ×2 (17:33→19:59)
[2020-09-03] MEDS ORDERED: Bisacodyl 5 MG Tab PO ONE (18:00)
[2020-09-03] MEDS: Melatonin 3 MG Tab PO SCH (19:57)
[2020-09-03] MEDS: Donepezil 5 MG Tab PO SCH (19:57)
[2020-09-04] MEDS: Pantoprazole 40 MG Vial IVPUSH SCH (06:58)
[2020-09-04] MEDS: Cyanocobalamin (Vitamin B12) 1,000 MCG Tab PO SCH (07:41)
[2020-09-04] MEDS: Ferrous Sulfate 324 MG Tab.EC PO SCH ×2 (07:41→17:34)
[2020-09-04] MEDS: Cholecalciferol (Vitamin D3) 25 MCG Tab PO SCH (07:41)
[2020-09-04] MEDS: Digoxin 125 MCG Tab PO SCH (07:41)
[2020-09-04] MEDS: Furosemide 40 MG Tab PO SCH ×2 (07:41→15:54)
[2020-09-04] MEDS: Lisinopril 10 MG Tab PO SCH (07:41)
[2020-09-04] MEDS: Carvedilol 12.5 MG Tab PO SCH ×2 (07:42→17:34)
--- NOTE | 2020-09-04 08:03 | PN ---
DATE: 09/03/2020 S: Mr. Corrales is completely asymptomatic. He had his EGD yesterday which did not show any signs of bleeding in his upper GI tract, only some minimal gastritis of the antrum. He had his hemoglobin up to 7 yesterday to get a unit of blood and he is 7 again today. His vital signs have been fine. He has not been hypotensive. He has been afebrile and his pulse is at 60, saturating in the upper 90s on room air. Clinically, he looks fine. He has been able to eat now. Denies any complaints of pain. Has not had any bloody stools. He is on oral iron and we continued to monitor. O: GENERAL: On physical exam, the patient is pleasant and cooperative. NECK: Supple. His veins are flat. LUNGS: His lung sounds are clear. There are no signs of failure. CARDIAC: Tones are regular. ABDOMEN: Soft, absolutely benign and nontender. EXTREMITIES: He has no peripheral edema other than his chronic trace to 1+. It has not changed and he has chronic stasis changes, which are longstanding. ASSESSMENT: 1. IRON DEFICIENCY ANEMIA. 2. HEME-POSITIVE STOOLS. 3. CONGESTIVE HEART FAILURE, COMPENSATED. 4. DEMENTIA. 5. HYPERTENSION. P: The patient remains on IV Protonix. I did talk to the family in the form of his daughter. They do want to continue workup and so we will plan on doing a colonoscopy on him this Tuesday. He has been off his Xarelto since Tuesday and we will continue to closely monitor his hemoglobins and transfuse as necessary. No other changes at this time. CAREN/SAE /[id number]
--- NOTE | 2020-09-04 14:38 | PN ---
DATE: 09/04/2020 S: Jonathan has had an uneventful day. He is feeling fine, has absolutely no complaints. His vitals have been stable. Once in a while his atrial fibrillation goes a little tachy, especially if he is moving around, but at baseline in rest, he is usually in the 70s. Blood pressures have been fine. His hemoglobin today is stable at 6.8. He is having a colonoscopy tomorrow. O: HEENT: Grossly benign. NECK: Veins are flat. LUNGS: Sounds are clear. CARDIAC: Tones are irregular, but controlled. ABDOMEN: Completely benign and nontender. ASSESSMENT: 1. GASTROINTESTINAL BLEED. 2. CHRONIC ATRIAL FIBRILLATION. 3. HISTORY OF CORONARY ARTERY DISEASE. 4. DEMENTIA. P: We will prep him today. Discharge back to home tomorrow and after his scope. LEATHA /[id number]
[2020-09-04] MEDS ORDERED: Polyethylene Glycol 3350 Powder 238 GM Bot PO SCH (18:00)
[2020-09-04] MEDS: Melatonin 3 MG Tab PO SCH (19:46)
[2020-09-04] MEDS: Donepezil 5 MG Tab PO SCH (19:47)
[2020-09-04] MEDS ORDERED: Bisacodyl 5 MG Tab PO ONE (20:00)
[2020-09-05] MEDS ORDERED: Lactated Ringers 1,000 ML IV SCH (06:00)
[2020-09-05] MEDS: Pantoprazole 40 MG Vial IVPUSH SCH (06:53)
[2020-09-05] MEDS ORDERED: fentaNYL 100 MCG/2 ML SDV ONE (07:05)
[2020-09-05] MEDS ORDERED: Midazolam 1 MG/ML 2 ML SDV ONE (07:05)
[2020-09-05] MEDS ORDERED: Flumazenil 0.1 MG/ML 5 ML MDV ONE (07:05)
[2020-09-05] MEDS: Digoxin 125 MCG Tab PO SCH (08:28)
[2020-09-05] MEDS: Carvedilol 12.5 MG Tab PO SCH (08:28)
[2020-09-05] MEDS: Cyanocobalamin (Vitamin B12) 1,000 MCG Tab PO SCH (08:28)
[2020-09-05] MEDS: Furosemide 40 MG Tab PO SCH (08:28)
[2020-09-05] MEDS: Ferrous Sulfate 324 MG Tab.EC PO SCH (08:28)
[2020-09-05] MEDS: Cholecalciferol (Vitamin D3) 25 MCG Tab PO SCH (08:28)
[2020-09-05 08:32] VITALS: BP 90/46; PULSE 70
--- NOTE | 2020-09-05 11:00 | OR ---
DATE OF OPERATION: 09/05/2020 PREOPERATIVE DIAGNOSIS: GASTROINTESTINAL BLEED. POSTOPERATIVE DIAGNOSIS: GASTROINTESTINAL BLEED. SURGEON: Demond Moody MD PROCEDURE: FULL-LENGTH COLONOSCOPY. ANESTHESIA: Conscious sedation via anesthesia with continuous O2 saturation monitoring, nurse assist. COMPLICATIONS: None. SPECIMEN: None. FINDINGS: 1. Full-length diagnostic colonoscopy. 2. Marginal prep. 3. Diverticulosis. 4. No bleeding sites, polyps, masses, vascular abnormalities, AVMs. INDICATIONS: The patient is an elderly male, [facility] and recent CHF. He presented with weakness and hemoglobin of 5. He has been transfused. His hemoglobin is stable at 7 off anticoagulation. His EGD was negative. We elected to proceed with diagnostic colonoscopy. DESCRIPTION OF PROCEDURE: The patient was prepped and draped, placed in the left lateral decubitus position. A lubricated Olympus colonoscope was inserted and quickly and easily advanced to the cecum. Direct visualization of the ileocecal valve was accomplished. The bowel prep was adequate. There was a lot of liquid stool in places, but for the most part areas could be visualized thoroughly. Upon withdrawal throughout the entire length of the colon, I could find no polyps, masses, ulceration, or bleeding sites. There were no vascular abnormalities or signs of colitis. I could find no signs of a bleeding area. The rectal vault was benign. Retroflexion showed no anal lesions. Air was suctioned. Scope removed without complication. CAREN/SAE /[id number]
[2020-09-05] MEDS: Lisinopril 10 MG Tab PO SCH (11:12)
--- NOTE | 2020-09-05 14:31 | DISCH ---
ADMISSION DIAGNOSES: 1. Anemia. 2. Gastrointestinal bleed. 3. Hypertension. 4. History of congestive heart failure. 5. Alzheimer's dementia. DISCHARGE DIAGNOSIS: 1. ANEMIA. 2. GASTROINTESTINAL BLEED. 3. HYPERTENSION. 4. HISTORY OF CONGESTIVE HEART FAILURE. 5. ALZHEIMER'S DEMENTIA. HISTORY: The patient is a 74-year-old, he is a recent admit to [facility]. He typically does his health care through the [facility] and we have little-to- no past history on him. He apparently had been admitted recently for a CHF exacerbation, and due to his inability to care for himself and memory impairment, he was placed at [facility]. Shortly after this placement, he started having complaints of fatigue and he was found to have a hemoglobin of 5 with ultimately 3 occult-positive stools. He was on Eliquis for chronic AFib that was stopped and as an outpatient he was given 2 units of blood. His hemoglobin fell again and we admitted him for transfusion and monitoring in our facility. HOSPITAL COURSE: The patient was given a total of 3 units of blood. His hemoglobin siomara to 7 and has been holding and slightly risen in the last 2 days. His Eliquis and aspirin have been stopped and he has had no melenic or bloody stools since being here. The day after admission, the patient did have an EGD which failed to show any obvious etiology and no bleeding sites. This went to the initial portion of the second part of the duodenum. There was some minimal gastritis, but otherwise unremarkable. A colonoscopy on the date of his discharge also failed to show an etiology other than diffuse diverticular disease, but there was no active bleeding at this time. The patient had been stable from a hemodynamic standpoint. He had been completely asymptomatic without any abdominal pain. No hypotension or shortness of breath. His sats have been fine. At this time, we are going to continue to hold his Eliquis and aspirin. He is on b.i.d. oral iron and we will continue to monitor his hemoglobins as an outpatient through the [facility]. Family had been kept abreast of his cares and progress during his stay. We will recheck hemoglobin in 4 days time. COMPLICATIONS: During his stay were none. CONSULTATIONS: None. PROCEDURES: Esophagogastroduodenoscopy, colonoscopy. DISPOSITION: Discharge to [facility]. CAREN/SAE /[id number]
== END 2020-09-05 11:40 | disposition home or self-care (01) | DRG 378 ==
LOC: CC.ED 10:15 → UNDOADMIN 12:11 → CC.MS 12:11
PROVIDERS: ADMIT Nurse Practitioner Family; ATTEND Family Medicine
PROC: 30233N1 Transfusion of Nonautologous Red Blood Cells into Peripheral Vein, Percutaneous Approach (ICD-10-PCS; 2020-09-01)
PROC: 0DB78ZX Excision of Stomach, Pylorus, Via Natural or Artificial Opening Endoscopic, Diagnostic (ICD-10-PCS; principal; 2020-09-02)
PROC: 0DJD8ZZ Inspection of Lower Intestinal Tract, Via Natural or Artificial Opening Endoscopic (ICD-10-PCS; 2020-09-05)
DX: K29.71 Gastritis, unspecified, with bleeding (principal); I48.20 Chronic atrial fibrillation, unspecified; I48.91 Unspecified atrial fibrillation; E78.00 Pure hypercholesterolemia, unspecified; I10 Essential (primary) hypertension; I73.9 Peripheral vascular disease, unspecified; F03.90 Unspecified dementia, unspecified severity, without behavioral disturbance, psychotic disturbance, mood disturbance, and anxiety; Z88.1 Allergy status to other antibiotic agents; Z88.2 Allergy status to sulfonamides; G30.9 Alzheimer's disease, unspecified; Z79.82 Long term (current) use of aspirin; Z79.899 Other long term (current) drug therapy; F02.80 Dementia in other diseases classified elsewhere, unspecified severity, without behavioral disturbance, psychotic disturbance, mood disturbance, and anxiety; K57.91 Diverticulosis of intestine, part unspecified, without perforation or abscess with bleeding; I11.0 Hypertensive heart disease with heart failure; I50.9 Heart failure, unspecified; D64.9 Anemia, unspecified; Z79.01 Long term (current) use of anticoagulants; K57.90 Diverticulosis of intestine, part unspecified, without perforation or abscess without bleeding; K29.70 Gastritis, unspecified, without bleeding; I25.10 Atherosclerotic heart disease of native coronary artery without angina pectoris
CPT/HCPCS: 36415; 36430; 80048; 80053; 80162; 85018; 85025; 86850; 86900; 86901; 86920; 86922; 88305; 93005; 93010; 97110-GP; 97161-GP; 99285-25; A9270-GY; C9113; J1940; J2175; J2250; J3010; J3490; J7050; J7120; P9016

== ENCOUNTER 2023-05-12 17:15 | Emergency (ER) | payer OTHER, MEDICARE ==
[2023-05-12 17:29] VITALS: BP 127/65; PULSE 94
[2023-05-12 18:08] LABS: BASOPHILS ABSOLUTE AUTO 0.06 10^3/uL (0.00-0.50); EOSINOPHILS ABSOLUTE AUTO 0.32 10^3/uL (0.00-1.50); EOSINOPHILS PERCENT AUTO 5.5 % (0-6); HEMATOCRIT 37.5 % (42.0-52.0); HEMOGLOBIN 12.4 g/dL (14.0-18.0); IMMATURE GRAN ABSOLUTE AUTO 0.01 10^3/uL (0.00-0.49); IMMATURE GRAN PERCENT AUTO 0.2 % (0.0-4.9); LYMPHOCYTES PERCENT AUTO 15.4 % (24-44); MEAN CORPUSCULAR HEMOGLOBIN 32.7 pg (27.0-32.0); MEAN CORPUSCULAR HGB CONC 33.1 g/dL (32.0-36.0); MEAN CORPUSCULAR VOLUME 98.9 fL (83.0-97.0); MONOCYTES ABSOLUTE AUTO 0.65 10^3/uL (0.00-1.50); MONOCYTES PERCENT AUTO 11.1 % (0-10); NEUTROPHILS PERCENT AUTO 66.8 % (41-71); PLATELET COUNT,PLT 190 10^3/uL (150-400); RED BLOOD CELL COUNT 3.79 x10^6/uL (4.50-6.00); WHITE BLOOD CELL COUNT,WBC 5.8 10^3/uL (4.0-11.0)
[2023-05-12 18:18] LABS: ALBUMIN 3.6 g/dL (3.4-5.0); C-REACTIVE PROTEIN 0.72 mg/dL (<=0.50); CALCIUM 8.9 mg/dL (8.4-10.1); CREATININE 1.4 mg/dL (0.7-1.3); EST CRCL DRUG DOSING (CG) 45.57 mL/min; MAGNESIUM 2.4 mg/dL (1.8-2.4); POTASSIUM,K 3.9 mEq/L (3.5-5.0)
[2023-05-12] MEDS: Lidocaine 1% with EPINEPHrine 1:100,000 10 ML MDV INJECT ONE (18:19)
[2023-05-12] MEDS: cefTRIAXone 2 GM Vial IVPUSH ONE (18:30)
[2023-05-12] MEDS: Doxycycline Monohydrate 100 MG Cap PO ONE (18:30)
== END 2023-05-12 18:45 | disposition home or self-care (01) ==
LOC: CC.ED 17:15
DX: L03.113 Cellulitis of right upper limb (principal); L02.413 Cutaneous abscess of right upper limb; I10 Essential (primary) hypertension; E78.00 Pure hypercholesterolemia, unspecified; Z79.899 Other long term (current) drug therapy; Z88.2 Allergy status to sulfonamides
CPT/HCPCS: 10060; 36415; 80053; 83605; 83735; 85025; 86140; 87040; 87070; 87077; 87186; 87205; 96374; 99283; 99283-25; A9270-GY; J0696; J3490